=== PATIENT | male | born 1970 | race Caucasian/White ===

== ENCOUNTER 2017-12-12 11:20 | Day surgery (SDC) | payer BC ==
[~2017-12-12 11:20] MED LIST: Midazolam 1 MG/ML 2 ML SDV ONE; Propofol 200 MG/20 ML SDV ONE; fentaNYL 100 MCG/2 ML SDV ONE
[2017-12-12] MEDS ORDERED: Lactated Ringers 1,000 ML IV SCH (11:30)
[2017-12-12] MEDS ORDERED: Sodium Chloride 0.9% 5 ML Syringe FLUSH PRN (11:30)
[2017-12-12] MEDS ORDERED: EPINEPHrine 1:10,000 1 MG/10 ML Syringe ONE (11:48)
[2017-12-12] MEDS ORDERED: Midazolam 1 MG/ML 2 ML SDV IV ONE (12:41)
[2017-12-12] MEDS ORDERED: Propofol 200 MG/20 ML SDV IV ONE (12:41)
[2017-12-12] MEDS ORDERED: fentaNYL 100 MCG/2 ML SDV IV ONE (12:41)
--- NOTE | 2017-12-12 13:03 | PCM.OPNOTE ---
- General Post-Op/Procedure Note Date of Surgery/Procedure: 12/12/17 Operative Procedure(s): Upper GI endoscopy and biopsies. Findings: Moderate antral gastritis noted. 5 cm hiatal hernia with mild inflammation noted. No acute ulcers. Pre Op Diagnosis: As above Anesthesia Technique: Moderate Sedation Primary Surgeon: Jayshree Ponce Complications: None Condition: Good Free Text/Narrative:: INFORMED CONSENT: Patient is here today for elective upper GI endoscopy. All aspects of this procedure have been discussed with the patient. All possible complications also, including possibility of perforation, infection, pain, bleeding, numbness of the throat, swallowing difficulty and unknown complications. In the event of perforation the patient may need surgical exploration to repair the defect. The patient understands fully well. Patient did not have any further questions for me at the end of my interview. The patient wishes for me to proceed. INSTRUMENT USED: Video gastroscope ANESTHESIA: [MAC] ASA CLASSIFICATION: [2] PROCEDURE PERFORMED: [Upper GI endoscopy with biopsies] PHARYNX: Normal. ESOPHAGUS: Normal. Proximal: Normal. Middle: Normal. Lower: Normal. GE Junction: 5 cm hiatal hernia with moderate inflammation noted.. STOMACH: Normal. Cardia: Normal. Fundus: Normal. Lesser Curvature: Normal. Greater Curvature: Moderate inflammation noted.. Antrum: Moderate inflammation noted. No ulcers noted.. Pylorus: Normal. DUODENUM: Normal. First Part: Normal. Second Part: Normal. Third Part: Normal. RETROFLEXION: Normal. BIOPSY: Taken from the antrum and greater curvature.. TOLERANCE: Excellent. COMPLICATIONS: None.
[2017-12-12] MEDS ORDERED: Iopamidol 612 MG/ML 75 ML Bottle IV ONE (13:56)
[2017-12-12] MEDS ORDERED: Sodium Chloride 0.9% 50 ML IV SCH (14:00)
== END 2017-12-12 15:00 | disposition home or self-care (01) ==
LOC: KA.SDS 11:20
PROVIDERS: ATTEND Family Medicine
DX: K29.50 Unspecified chronic gastritis without bleeding (principal); K44.9 Diaphragmatic hernia without obstruction or gangrene; K21.9 Gastro-esophageal reflux disease without esophagitis; Z91.030 Bee allergy status; Z79.899 Other long term (current) drug therapy
CPT/HCPCS: 74177; J2250; J2704; J3010; J7050; J7120; Q9967

== ENCOUNTER 2021-01-03 06:48 | Day surgery (SDC) | payer BC ==
[2021-01-03] MEDS ORDERED: Sodium Chloride 0.9% 10 ML Syringe FLUSH PRN (07:00)
[2021-01-03] MEDS: Lactated Ringers 1,000 ML IV SCH (07:05)
[2021-01-03] MEDS ORDERED: Propofol 200 MG/20 ML SDV ONE (07:45)
[2021-01-03] MEDS ORDERED: Midazolam 1 MG/ML 2 ML SDV ONE (07:45)
[2021-01-03] MEDS ORDERED: Lidocaine 2% 5 ML SDV ONE (07:45)
[2021-01-03] MEDS ORDERED: Glycopyrrolate 0.2 MG/ML SDV IVPUSH ONE (08:30)
--- NOTE | 2021-01-03 08:47 | PCM.PRNOTE ---
- Free Text/Narrative Note: PROCEDURE PERFORMED: Esophagogastroduodenoscopy with biopsy PRE-PROCEDURE DIAGNOSIS/INDICATION FOR PROCEDURE: Persistent epigastric pain, hx PUD, last EGD 12/12/17 with chronic gastritis and 5cm hiatal hernia CONSENT: Informed consent was obtained prior to the procedure after discussion of the risks (including pain, bleeding, infection, perforation, need for further procedures, adverse reaction to anesthesia, cardiovascular event), benefits and alternatives and expected outcomes. Verbal consent given and consent form signed. PROCEDURAL PAUSE: Completed SEDATION: Per anesthesia DESCRIPTION OF PROCEDURE: Patient was brought back to the operating room and placed in a left lateral decubitus position. Bite block placed. After adequate sedation and anesthetic was administered, endoscope was inserted into the patient's mouth and was passed easily through the esophagus and stomach into the duodenum without difficulty. Examined duodenum normal appearing. Pylorus normal appearing. Stomach, including viewing in retroflexion, with gastritis, but no ulcers or other abnormalities. Biopsies obtained with cold forceps to evaluate histologically and to evaluate for H. pylori. 2 cm hiatal hernia was present with the gastroesophageal junction at 44 cm from the incisors. Esophagus normal appearing. The scope was removed without difficulty. Patient tolerated the procedure well. No complications. IMPRESSION: Esophagogastroduodenoscopy performed revealing: - Gastritis, pathology now pending - 2cm hiatal hernia PLAN: Will contact the patient when pathology results received. Discussed appropriate administration of antacid medication. Highly encourage decreasing with attempt to discontinue smoking and alcohol use. Follow-up with primary provider for assistance as well as to further work-up abdominal pain, if persistent.
[2021-01-03 11:41] VITALS: BP 146/78; PULSE 63
== END 2021-01-03 10:20 | disposition home or self-care (01) ==
LOC: KA.SDS 06:48
PROVIDERS: ATTEND Family Medicine
DX: K29.50 Unspecified chronic gastritis without bleeding (principal); K31.89 Other diseases of stomach and duodenum; K44.9 Diaphragmatic hernia without obstruction or gangrene; Z87.11 Personal history of peptic ulcer disease; R42 Dizziness and giddiness; Z91.030 Bee allergy status; Z79.899 Other long term (current) drug therapy
CPT/HCPCS: 00731; J2250; J2704; J3490; J7120

== ENCOUNTER 2021-09-20 06:20 | Emergency (ER) | payer BC ==
[2021-09-20 07:10] LABS: ANION GAP 15.3 mmol/L (5-15); CHLORIDE,CL 95 mmol/L (98-107); SODIUM,NA 132 mmol/L (136-145)
[2021-09-20] MEDS: Sodium Chloride 0.9% 1,000 ML IV ONE (07:48)
[2021-09-20] MEDS: Iopamidol 755 Mg/ML 75 ML Bottle IVPUSH ONE (07:55)
[2021-09-20] MEDS: Sodium Chloride 0.9% 50 ML IV SCH (07:55)
[2021-09-20] MEDS ORDERED: diphenhydrAMINE 50 MG/ML SDV IVPUSH PRN (08:41)
[2021-09-20] MEDS ORDERED: EPINEPHrine 1:10,000 1 MG/10 ML Syringe IM PRN (08:41)
[2021-09-20] MEDS ORDERED: methylPREDNISolone Sodium Succinate 125 MG/2 ML SDV IVPUSH PRN (08:41)
[2021-09-20] MEDS ORDERED: Famotidine 20 MG/2 ML SDV IVPUSH PRN (08:41)
[2021-09-20] MEDS: Sodium Chloride 0.9% 10 ML Syringe FLUSH SCH (09:46)
== END 2021-09-20 10:40 | disposition home or self-care (01) ==
LOC: KA.ED 06:20
DX: U07.1 COVID-19 (principal); J43.2 Centrilobular emphysema; Z91.030 Bee allergy status
CPT/HCPCS: 36415; 71275; 80053; 85025; 85379; 99284; 99285-25; J7030; M0247; Q0247; Q9967; U0002

== ENCOUNTER 2025-01-16 13:13 | Emergency (ER) | payer OTHER ==
[2025-01-16 13:58] LABS: BASOPHILS PERCENT AUTO 0.8 % (0.0-1.0); EOSINOPHILS ABSOLUTE AUTO 0.36 10^3/uL (0.10-0.30); EOSINOPHILS PERCENT AUTO 2.7 % (1.0-3.0); HEMATOCRIT 44.8 % (40.0-52.0); IMMATURE GRAN ABSOLUTE AUTO 0.04 10^3/uL (0.00-0.04); IMMATURE GRAN PERCENT AUTO 0.3 % (0.0-0.4); LYMPHOCYTES ABSOLUTE AUTO 2.72 10^3/uL (1.00-4.00); LYMPHOCYTES PERCENT AUTO 20.7 % (20.0-40.0); MEAN CORPUSCULAR HEMOGLOBIN 30.8 pg (27.0-31.0); MEAN CORPUSCULAR HGB CONC 33.5 g/dL (32.0-36.0); MEAN PLATELET VOLUME 8.8 fL (7.4-10.4); MONOCYTES ABSOLUTE AUTO 0.97 10^3/uL (0.10-0.80); MONOCYTES PERCENT AUTO 7.4 % (2.0-8.0); NEUTROPHILS ABSOLUTE AUTO 8.96 10^3/uL (2.50-7.00); NEUTROPHILS PERCENT AUTO 68.1 % (50.0-70.0); PLATELET COUNT,PLT 454 10^3/uL (150-400); RED BLOOD CELL COUNT 4.87 10^6/uL (4.50-6.00); RED CELL DISTRIBUTION WIDTH 14.3 % (11.5-14.5); WHITE BLOOD CELL COUNT,WBC 13.15 10^3/uL (5.00-10.00)
[2025-01-16 14:13] LABS: ACETAMINOPHEN 1.2 ug/mL (10.0-30.0); ALANINE AMINOTRANSFERASE,ALT 16 U/L (14-63); ALKALINE PHOSPHATASE 114 U/L (46-116); ANION GAP 16.9 mmol/L (5-15); ASPARTATE AMNIOTRANSFERASE,AST 24 U/L (15-37); BILIRUBIN TOTAL 0.2 mg/dL (0.2-1.0); BLOOD UREA NITROGEN,BUN 16 mg/dL (7-18); CARBON DIOXIDE,CO2 25.3 mmol/L (21.0-32.0); CHLORIDE,CL 101 mmol/L (98-107); GLUCOSE RANDOM 82 mg/dL (70-140); POTASSIUM,K 4.2 mmol/L (3.5-5.1); PROTEIN TOTAL,TP 7.8 g/dL (6.4-8.2); SODIUM,NA 139 mmol/L (136-145)
[2025-01-16 14:16] LABS: ESTIMATED GFR 104 mL/min (>=60)
[2025-01-16 14:17] LABS: ETHANOL BLOOD MEDICAL 217 mg/dL (<3)
[2025-01-16] MEDS: LORazepam 0.5 MG Tab PO ONE (15:39)
[2025-01-16] MEDS: cloNIDine 0.1 MG Tab PO ONE (15:39)
[2025-01-17] MEDS: Haloperidol Lactate 5 MG/ML SDV IM ONE (13:40)
== END 2025-01-16 16:15 ==
LOC: KA.ED 13:13
DX: T14.91XA Suicide attempt, initial encounter (principal); Z91.030 Bee allergy status; Z79.899 Other long term (current) drug therapy
CPT/HCPCS: 36415; 80053; 80143; 80179; 80307; 85025; 99284; 99285; A9270-GY